=== PATIENT | female | born 1985 ===

== ENCOUNTER 2017-11-30 21:26 | Emergency (ER) | payer MEDICAID, OTHER ==
[2017-11-30 22:41] VITALS: TEMP 98; O2SAT 100
--- NOTE | 2017-12-01 01:05 | ED PDOC ---
HPI: Allergic Reaction Time Seen by Provider: 11/30/17 23:00 Chief Complaint (Nursing): Allergic Reaction Chief Complaint (Provider): Allergic reaction History Per: Patient History/Exam Limitations: no limitations Onset/Duration Of Symptoms: Days Current Symptoms Are (Timing): Still Present Additional History Per: Patient Additional Complaint(s): 32yo female, known allergy to aspirin, comes to ER complaining of a diffuse urticaria to her body after she took Excedrin 7 days ago. Patient states she did not realize excedrin had aspirin in it; she denies any shortness of breath, throat swelling, and offers no additional complaints. She took 2 tabs of Benadryl PO prior to arrival and states her symptoms are better. Past Medical History Reviewed: Historical Data, Nursing Documentation, Vital Signs Vital Signs: Last Vital Signs Temp 98.0 F 11/30/17 22:39 Pulse 97 H 11/30/17 22:39 Resp 18 11/30/17 22:39 BP 132/87 11/30/17 22:39 Pulse Ox 100 11/30/17 22:39 - Medical History PMH: No Chronic Diseases - Surgical History Surgical History: No Surg Hx - Family History Family History: States: No Known Family Hx - Social History Current smoker - smoking cessation education provided: No Alcohol: None Drugs: Denies - Home Medications Home Medications: Ambulatory Orders Medication Instructions Recorded Ibuprofen [Motrin] 600 mg PO TID 7 Days tab 12/29/15 Metaxalone [Skelaxin] 800 mg PO TID PRN #20 tablet 03/16/16 Naproxen [Naprosyn] 500 mg PO BID #20 tab 03/16/16 traMADol [Ultram] 50 mg PO TID PRN #15 tab 03/16/16 Ibuprofen [Motrin] 600 mg PO TID 7 Days tab 04/29/16 - Allergies Allergies/Adverse Reactions: Allergies Allergy/AdvReac Type Severity Reaction Status Date / Time aspirin Allergy RASH Verified 11/30/17 22:39 Review of Systems ROS Statement: Except As Marked, All Systems Reviewed And Found Negative ENT: Negative for: Mouth Swelling, Throat Swelling Respiratory: Negative for: Shortness of Breath Skin: Positive for: Rash Physical Exam - Reviewed Nursing Documentation Reviewed: Yes Vital Signs Reviewed: Yes - Physical Exam Appears: Positive for: Non-toxic, No Acute Distress Head Exam: Positive for: ATRAUMATIC, NORMAL INSPECTION, NORMOCEPHALIC Skin: Positive for: Normal Color, Warm, Rash (diffuse urticaria to abdomen) Eye Exam: Positive for: EOMI, Normal appearance, PERRL ENT: Positive for: Normal ENT Inspection Neck: Positive for: Normal, Painless ROM Cardiovascular/Chest: Positive for: Regular Rate, Rhythm Respiratory: Positive for: Normal Breath Sounds. Negative for: Wheezing Gastrointestinal/Abdominal: Positive for: Normal Exam, Soft Back: Positive for: Normal Inspection Extremity: Positive for: Normal ROM Neurologic/Psych: Positive for: Alert, Oriented - ECG O2 Sat by Pulse Oximetry: 100 (RA) Pulse Ox Interpretation: Normal - Progress ED Course And Treament: Impression: Urticaria Plan: -- Prednisone 40mg PO -- Pepcid 20mg PO 02:10 On reassessment, patient reports improvement of symptoms and is stable for discharge home. Scribe Attestation: Documented by Nu Otero, acting as a scribe for Darwin Meier MD Provider Scribe Attestation: All medical record entries made by the Scribe were at my direction and personally dictated by me. I have reviewed the chart and agree that the record accurately reflects my personal performance of the history, physical exam, medical decision making, and the department course for this patient. I have also personally directed, reviewed, and agree with the discharge instructions and disposition. Disposition - Clinical Impression Clinical Impression: Allergic reaction - Patient ED Disposition Is Patient to be Admitted: No Counseled Patient/Family Regarding: Studies Performed, Diagnosis, Need For Followup - Disposition Referrals: Myles Helms MD [Primary Care Provider] - Disposition: Routine/Home Disposition Time: 02:00 Condition: IMPROVED Additional Instructions: follow up with your primary doctor in 1-2 days take benadryl as needed for rash return to the ED with any worsening or concerning symptoms. Instructions: Drug Allergy Forms: [employer] (Palestinian)
[2017-12-01 02:17] VITALS: BP 129/66; PULSE 83; RESP 16
== END 2017-12-01 02:22 | disposition home or self-care (01) ==
LOC: H.ER 21:26
DX: T78.40XA Allergy, unspecified, initial encounter (principal)

== ENCOUNTER 2018-02-17 00:17 | Emergency (ER) | payer MEDICAID ==
[2018-02-17] MEDS ORDERED: Sodium Chloride 0.9% 1,000 ML IV STA (00:49)
--- NOTE | 2018-02-17 00:52 | ED PDOC ---
HPI: Abdomen Time Seen by Provider: 02/17/18 00:33 Chief Complaint (Nursing): Abdominal Pain Chief Complaint (Provider): abdominal pain History Per: Patient History/Exam Limitations: no limitations Onset/Duration Of Symptoms: Hrs (8) Current Symptoms Are (Timing): Still Present Location Of Pain/Discomfort: Epigastric Associated Symptoms: Nausea, Vomiting Last Bowel Movement: Today Additional Complaint(s): 32 y/o female presents for evaluation of epigastric abdominal pain x 8 hours. Associated vomiting x 2. Denies fever, chest pain, shortness of breath, palpitations, changes in bowel movements, urinary symptoms. Past Medical History Reviewed: Historical Data, Nursing Documentation, Vital Signs Vital Signs: Last Vital Signs Temp 98.1 F 02/17/18 00:23 Pulse 92 H 02/17/18 00:23 Resp 18 02/17/18 00:23 BP 121/81 02/17/18 00:23 Pulse Ox 98 02/17/18 00:23 - Medical History PMH: No Chronic Diseases - Surgical History Surgical History: - Family History Family History: States: Unknown Family Hx - Home Medications Home Medications: Ambulatory Orders Medication Instructions Recorded Ibuprofen [Motrin] 600 mg PO TID 7 Days tab 12/29/15 Metaxalone [Skelaxin] 800 mg PO TID PRN #20 tablet 03/16/16 Naproxen [Naprosyn] 500 mg PO BID #20 tab 03/16/16 traMADol [Ultram] 50 mg PO TID PRN #15 tab 03/16/16 Ibuprofen [Motrin] 600 mg PO TID 7 Days tab 04/29/16 Famotidine [Pepcid] 20 mg PO BID #20 tab 02/17/18 Ondansetron ODT [Zofran ODT] 4 mg PO Q8 PRN #10 odt 02/17/18 - Allergies Allergies/Adverse Reactions: Allergies Allergy/AdvReac Type Severity Reaction Status Date / Time aspirin Allergy RASH Verified 02/17/18 00:22 Review of Systems ROS Statement: Except As Marked, All Systems Reviewed And Found Negative Gastrointestinal: Positive for: Nausea, Vomiting, Abdominal Pain Physical Exam - Reviewed Nursing Documentation Reviewed: Yes Vital Signs Reviewed: Yes - Physical Exam Appears: Positive for: Well, Non-toxic, No Acute Distress Head Exam: Positive for: ATRAUMATIC, NORMAL INSPECTION, NORMOCEPHALIC Skin: Positive for: Normal Color Eye Exam: Positive for: Normal appearance ENT: Positive for: Normal ENT Inspection Cardiovascular/Chest: Positive for: Regular Rate, Rhythm Respiratory: Positive for: Normal Breath Sounds Gastrointestinal/Abdominal: Positive for: Bowel Sounds, Soft, Tenderness (epigastric) Back: Positive for: Normal Inspection Extremity: Positive for: Normal ROM Neurologic/Psych: Positive for: Alert, Oriented (x3) - Laboratory Results Result Diagrams: 02/17/18 01:05 02/17/18 01:05 - ECG O2 Sat by Pulse Oximetry: 98 - Progress ED Course And Treament: -cbc -cmp -lipase -upreg -udip -IV zofran -IV pepcid -IV NS bolus -IV toradol On re-eval, patient states she is feeling better. Tolerating PO Patient educated on findings, discharged with rx Pepcid, Zofran Advised follow up PMD within 2-3 days Diet modification Return precautions given Disposition - Clinical Impression Clinical Impression: Abdominal pain - Patient ED Disposition Is Patient to be Admitted: No Counseled Patient/Family Regarding: Studies Performed, Diagnosis, Need For Followup, Rx Given - Disposition Disposition: Routine/Home Disposition Time: 02:49 Condition: IMPROVED Prescriptions: Famotidine [Pepcid] 20 mg PO BID #20 tab Ondansetron ODT [Zofran ODT] 4 mg PO Q8 PRN #10 odt PRN Reason: Nausea/Vomiting Instructions: Acute Abdomen (Belly Pain) Forms: [facility] ([place])
[2018-02-17 01:20] LABS: BASO % 0.2 % (0.0-2.0); EOS # 0.2 K/uL (0.0-0.7); EOS % 1.8 % (0.0-4.0); HEMOGLOBIN 13.7 g/dL (12.0-16.0); LYMPH # 1.2 K/uL (1.0-4.3); LYMPH % 13.8 % (20.0-40.0); MEAN CELL VOLUME 88.8 fl (81.0-99.0); MEAN CORPUSCULAR HEMOGLOBIN 30.5 pg (27.0-31.0); MEAN CORPUSCULAR HGB CONC 34.4 g/dL (33.0-37.0); MONO # 0.4 K/uL (0.0-0.8); MONO % 4.6 % (0.0-10.0); NEUT # 6.8 K/uL (1.8-7.0); NEUT % 79.6 % (50.0-75.0); RBC 4.5 Mil/uL (3.80-5.20); RED CELL DISTRIBUTION WIDTH 12.7 % (11.5-14.5); WHITE BLOOD COUNT 8.6 K/uL (4.8-10.8)
[2018-02-17 01:32] LABS: ALB/GLOB RATIO 1.2 (1.0-2.1); ALT/SGPT 27 U/L (9-52); AST/SGOT 23 U/L (14-36); BLOOD UREA NITROGEN 15 mg/dl (7-17); CALCIUM 9.1 mg/dL (8.4-10.2); GFR NON-AFRICAN AMERICAN > 60; LIPASE 115 U/L (23-300)
[2018-02-17 03:47] VITALS: BP 135/72; PULSE 82; RESP 17; TEMP 98; O2SAT 100
== END 2018-02-17 02:59 | disposition home or self-care (01) ==
LOC: H.ER 00:17
DX: R10.13 Epigastric pain (principal); Z79.899 Other long term (current) drug therapy
CPT/HCPCS: 80053; 81025; 83690; 85025; 96361; 96374; 96375; 99283; J1885; J2405; J7030